=== PATIENT | female | born 1990 | race Caucasian/White ===

== ENCOUNTER 2022-05-28 13:50 | Emergency (ER) | payer BC ==
[~2022-05-28] VITALS: Ht 160 cm; Wt 69.1 kg
[~2022-05-28 13:50] MED LIST: CYCL-1 PO; IBUP-1986 PO; MECL-159 PO; ONDA4TAB12 PO; ORPH100T2 PO; PROC-8 PO
[2022-05-28 14:20] LABS: BASOPHILS # (AUTO) 0.1 X10'3 (0-0.2); BASOPHILS % (AUTO) 1.2 % (0-1); EOSINOPHILS % (AUTO) 0.4 % (0-6); HEMATOCRIT 41.9 % (35.0-45.0); HEMOGLOBIN 14.4 g/dl (12.0-16.0); LYMPHOCYTES # (AUTO) 1.7 X10'3 (1.1-4.8); LYMPHOCYTES % (AUTO) 25.3 % (21-51); MEAN CORPUSCULAR HEMOGLOBIN 32.6 PG (27.0-31.0); MEAN CORPUSCULAR HGB CONC 34.3 g/dL (33.0-36.5); MEAN CORPUSCULAR VOLUME 95.1 FL (78-98); MEAN PLATELET VOLUME 8.3 FL (7.4-10.4); MONOCYTES # (AUTO) 0.4 X10'3 (0-0.9); MONOCYTES % (AUTO) 6.5 % (2-12); NEUTROPHILS # (AUTO) 4.4 X10'3 (1.8-7.7); NEUTROPHILS % (AUTO) 66.6 % (42-75); PLATELET COUNT 276 X10'3 (140-440); RED CELL DISTRIBUTION WIDTH 12.7 % (11.5-14.5); WHITE BLOOD COUNT 6.6 X10'3 (4.5-11.0)
[2022-05-28 14:40] LABS: ALANINE AMINOTRANSFERASE 8 U/L (12-78); ALBUMIN 4.5 G/DL (3.4-5.0); ALBUMIN/GLOBULIN RATIO 1.4 (1.1-1.5); ALKALINE PHOSPHATASE 64 IU/L (46-116); ANION GAP 11 (8-16); ASPARTATE AMINO TRANSFERASE 16 U/L (10-37); BILIRUBIN,TOTAL 0.6 MG/DL (0.1-1.0); BLOOD UREA NITROGEN 10 MG/DL (7-18); BUN/CREATININE RATIO 13.9 (6.6-38.0); CALCIUM 9.1 MG/DL (8.5-10.1); CHLORIDE 104 MMOL/L (99-107); CREATININE 0.72 MG/DL (0.40-0.90); GLUCOSE 108 MG/DL (70-104); POTASSIUM 3.2 MMOL/L (3.5-5.1); SODIUM 138 MMOL/L (135-145); TOTAL CARBON DIOXIDE 22.8 MMOL/L (24-32); TOTAL PROTEIN 7.8 G/DL (6.4-8.2); eGFR > 90 ML/MIN
[2022-05-28 14:44] LABS: MAGNESIUM 2.2 MG/DL (1.5-2.4)
[2022-05-28] MEDS ORDERED: potassium Cl 20 mEq SR tablet PO ONE (15:55)
[2022-05-28 16:12] LABS: ETHANOL < 0.010 GM/DL (0.0-0.010)
[2022-05-28] MEDS ORDERED: naproxen 500mg tablet PO ONE (16:30)
[2022-05-28 16:36] LABS: URINE HCG NEGATIVE (NEG)
[2022-05-28 16:40] LABS: CLARITY,URINE CLOUDY (Clear); COLOR,URINE YELLOW (Yellow); GLUCOSE, URINE NEGATIVE (Neg); KETONES,URINE >=80 mg/dl (Neg); LEUKOCYTE ESTERASE ,URINE NEGATIVE (Neg); NITRITES, URINE NEGATIVE (Neg); OCCULT BLOOD,URINE LARGE (Neg); PH,URINE 6.5 (4.8-8.0); PROTEIN,URINE TRACE mg/dl (Neg); UROBILINOGEN,URINE 0.2 E.U/dL (0.2-1.0)
[2022-05-28 16:53] LABS: URINE AMPHETAMINE SCREEN NEGATIVE (Neg); URINE BARBITUATE SCREEN NEGATIVE (Neg); URINE BENZODIAZEPINES SCREEN NEGATIVE (Neg); URINE COCAINE SCREEN NEGATIVE (Neg); URINE METHADONE SCREEN NEGATIVE (Neg); URINE OPIATE SCREEN NEGATIVE (Neg); URINE PHENCYCLIDINE SCREEN NEGATIVE (Neg)
[2022-05-28 16:59] LABS: UA COLLECTION TYPE CLN CATCH MIDSTREAM
[2022-05-28 17:00] LABS: BACTERIA,URINE 2+ /HPF (Neg); MUCUS STRANDS MANY /LPF (Neg); RBC,URINE 50-100 /HPF (0-2); SQUAMOUS EPITHELIAL CELL,UR MANY /LPF (FEW); WBC,URINE 0-4 /HPF (0-4)
[2022-05-28] MEDS ORDERED: diazepam 5mg tablet PO ONE (18:15)
[2022-05-28 18:27] VITALS: BP 126/90
[2022-06-03] MEDS ORDERED: PROP10TA10 PO (05:27)
== END 2022-05-28 18:34 | disposition home or self-care (01) ==
LOC: ER 13:51 → MERGE 13:51 → ER 18:34
DX: R00.2 Palpitations (principal); E87.6 Hypokalemia; R07.9 Chest pain, unspecified; R42 Dizziness and giddiness; Z88.1 Allergy status to other antibiotic agents; Z88.0 Allergy status to penicillin; Z79.899 Other long term (current) drug therapy
CPT/HCPCS: 36415; 71045; 80053; 80305; 80320; 81001; 81025; 83735; 83880; 84443; 84484; 85025; 93005; 99285

== ENCOUNTER 2022-06-01 06:03 | Emergency (ER) | payer BC ==
[~2022-06-01] VITALS: Ht 160 cm; Wt 66.8 kg
[2022-06-01 06:38] LABS: BASOPHILS # (AUTO) 0.1 X10'3 (0-0.2); BASOPHILS % (AUTO) 1.3 % (0-1); EOSINOPHILS # (AUTO) 0.1 X10'3 (0-0.9); EOSINOPHILS % (AUTO) 0.7 % (0-6); HEMATOCRIT 40.2 % (35.0-45.0); HEMOGLOBIN 13.7 g/dl (12.0-16.0); LYMPHOCYTES # (AUTO) 3.4 X10'3 (1.1-4.8); LYMPHOCYTES % (AUTO) 45.9 % (21-51); MEAN CORPUSCULAR HEMOGLOBIN 32.3 PG (27.0-31.0); MEAN CORPUSCULAR HGB CONC 34.2 g/dL (33.0-36.5); MEAN CORPUSCULAR VOLUME 94.6 FL (78-98); MONOCYTES # (AUTO) 0.6 X10'3 (0-0.9); MONOCYTES % (AUTO) 7.5 % (2-12); NEUTROPHILS # (AUTO) 3.3 X10'3 (1.8-7.7); NEUTROPHILS % (AUTO) 44.6 % (42-75); PLATELET COUNT 292 X10'3 (140-440); RED BLOOD COUNT 4.25 X10'6 (4.20-5.60); RED CELL DISTRIBUTION WIDTH 12.9 % (11.5-14.5); WHITE BLOOD COUNT 7.4 X10'3 (4.5-11.0)
[2022-06-01 07:06] LABS: ALANINE AMINOTRANSFERASE 11 U/L (12-78); ALBUMIN 4.4 G/DL (3.4-5.0); ALBUMIN/GLOBULIN RATIO 1.4 (1.1-1.5); ALKALINE PHOSPHATASE 63 IU/L (46-116); ANION GAP 14 (8-16); ASPARTATE AMINO TRANSFERASE 20 U/L (10-37); BLOOD UREA NITROGEN 14 MG/DL (7-18); BUN/CREATININE RATIO 15.1 (6.6-38.0); CALCIUM 9.4 MG/DL (8.5-10.1); CHLORIDE 100 MMOL/L (99-107); CREATININE 0.93 MG/DL (0.40-0.90); GLUCOSE 139 MG/DL (70-104); POTASSIUM 3.1 MMOL/L (3.5-5.1); SODIUM 138 MMOL/L (135-145); TOTAL CARBON DIOXIDE 23.8 MMOL/L (24-32); TOTAL PROTEIN 7.5 G/DL (6.4-8.2); eGFR 71 ML/MIN
[2022-06-01 07:35] LABS: D-DIMER 0.24 MG/L FEU (0-0.50)
[2022-06-01] MEDS ORDERED: potassium Cl 20 mEq SR tablet PO ONE (07:35)
[2022-06-01] MEDS ORDERED: potassium Cl 20mEq/100mL bag 100 ML IV ONE (07:35)
[2022-06-01] MEDS ORDERED: Potassium Cl inj 20 MEQ in normal saline 250ml IV soln 250 ML IV ONE (07:51)
--- NOTE | 2022-06-01 09:55 | NUR ---
Spoke with Dr. Maria and pt to only receive one IV dose 20 mEq KCL and has had received 40mEq K-dur orally.
[2022-06-01 10:05] VITALS: BP 138/84
[2022-06-01] MEDS ORDERED: PROP10TA10 PO ×2 (17:10)
[2022-06-03] MEDS ORDERED: PROP10TA10 PO (05:27)
== END 2022-06-01 10:09 | disposition home or self-care (01) ==
LOC: ER 06:04
DX: I47.1 Supraventricular tachycardia (principal); F41.0 Panic disorder [episodic paroxysmal anxiety]; F17.200 Nicotine dependence, unspecified, uncomplicated; F12.90 Cannabis use, unspecified, uncomplicated; Z72.89 Other problems related to lifestyle; Z88.1 Allergy status to other antibiotic agents; Z88.8 Allergy status to other drugs, medicaments and biological substances
CPT/HCPCS: 36415; 71045; 80053; 83880; 84443; 84484; 85025; 85379; 93005; 96365; 99285; J3480; J7050

== ENCOUNTER → 2022-08-31 | Outpatient (CLI) | payer BC ==
[~2022-08-31] MED LIST changes: +IBUP-864 PO; -ORPH100T2 PO; +ORPH100T4 PO; +PROP10TA10 PO
== END | disposition home or self-care (01) ==
LOC: RAD 11:01
PROVIDERS: ATTEND Family Medicine
DX: M51.36 Other intervertebral disc degeneration, lumbar region (principal); M48.061 Spinal stenosis, lumbar region without neurogenic claudication; M12.88 Other specific arthropathies, not elsewhere classified, other specified site; M54.50 Low back pain, unspecified
CPT/HCPCS: 72110

== ENCOUNTER 2023-05-16 06:14 | Emergency (ER) | payer BC ==
[~2023-05-16] VITALS: Ht 160 cm; Wt 66.8 kg
[~2023-05-16 06:14] MED LIST changes: -MECL-159 PO; +MECL-302 PO
[2023-05-16 06:19] VITALS: TEMP 98.3
[2023-05-16 07:19] LABS: BASOPHILS # (AUTO) 0.1 X10'3 (0-0.2); EOSINOPHILS # (AUTO) 0.1 X10'3 (0-0.9); EOSINOPHILS % (AUTO) 2.2 % (0-6); HEMATOCRIT 41.4 % (35.0-45.0); HEMOGLOBIN 14.3 g/dl (12.0-16.0); LYMPHOCYTES # (AUTO) 2.2 X10'3 (1.1-4.8); LYMPHOCYTES % (AUTO) 42.1 % (21-51); MEAN CORPUSCULAR HEMOGLOBIN 32.3 PG (27.0-31.0); MEAN CORPUSCULAR HGB CONC 34.5 g/dL (33.0-36.5); MEAN CORPUSCULAR VOLUME 93.5 FL (78-98); MEAN PLATELET VOLUME 7.9 FL (7.4-10.4); MONOCYTES # (AUTO) 0.4 X10'3 (0-0.9); MONOCYTES % (AUTO) 8.5 % (2-12); NEUTROPHILS # (AUTO) 2.4 X10'3 (1.8-7.7); NEUTROPHILS % (AUTO) 46.2 % (42-75); PLATELET COUNT 270 X10'3 (140-440); RED BLOOD COUNT 4.43 X10'6 (4.20-5.60); RED CELL DISTRIBUTION WIDTH 12.6 % (11.5-14.5); WHITE BLOOD COUNT 5.1 X10'3 (4.5-11.0)
[2023-05-16 07:24] VITALS: BP 108/68; PULSE 71; RESP 20; O2SAT 98
[2023-05-16 07:36] LABS: ALBUMIN 3.9 G/DL (3.4-5.0); ANION GAP 15 (8-16); BLOOD UREA NITROGEN 8 MG/DL (7-18); BUN/CREATININE RATIO 9.2 (10.0-20.0); CALCIUM 8.4 MG/DL (8.5-10.1); CHLORIDE 104 MMOL/L (99-107); CREATININE 0.87 MG/DL (0.40-0.90); GLUCOSE 80 MG/DL (70-104); POTASSIUM 3.8 MMOL/L (3.5-5.1); PRO BRAIN NATRIURETIC PEPTIDE < 30 PG/ML (0-125); SODIUM 141 MMOL/L (135-145); TOTAL CARBON DIOXIDE 21.9 MMOL/L (24-32); eCRCL 78 ML/MIN; eGFR 76 ML/MIN
[2023-05-16] MEDS: LORazepam 2 mg/ml vial IV ONE (08:22)
[2023-05-16] MEDS: normal saline 1000ml 1,000 ML IV ONE ×2 (08:22→09:56)
[2023-05-16 08:37] LABS: D-DIMER < 0.19 MG/L FEU (0-0.50)
[2023-05-16 09:45] LABS: URINE AMPHETAMINE SCREEN NEGATIVE (Neg); URINE BARBITUATE SCREEN NEGATIVE (Neg); URINE BENZODIAZEPINES SCREEN NEGATIVE (Neg); URINE CANNABINOID SCREEN POSITIVE (Neg); URINE COCAINE SCREEN NEGATIVE (Neg); URINE METHADONE SCREEN NEGATIVE (Neg); URINE OPIATE SCREEN NEGATIVE (Neg); URINE PHENCYCLIDINE SCREEN NEGATIVE (Neg)
== END 2023-05-16 10:15 | disposition home or self-care (01) ==
LOC: ER 06:15
DX: F41.9 Anxiety disorder, unspecified (principal); E86.0 Dehydration; F12.10 Cannabis abuse, uncomplicated; Z79.899 Other long term (current) drug therapy
CPT/HCPCS: 36415; 71045; 80048; 80305; 83880; 84484; 85025; 85379; 93005; 96361; 96374; 99285; J2060; J7030

== ENCOUNTER 2023-06-11 15:56 | Emergency (ER) | payer BC ==
[~2023-06-11] VITALS: Ht 160 cm; Wt 67.6 kg
[2023-06-11 16:00] VITALS: BP 131/85; PULSE 92; TEMP 98; O2SAT 100
[2023-06-11] MEDS ORDERED: PRED20TA PO (16:09)
[2023-06-11 16:24] VITALS: RESP 16
[2023-06-11] MEDS: ketorolac trometh. 30mg/ml inj. IM ONE (16:24)
== END 2023-06-11 16:30 | disposition home or self-care (01) ==
LOC: ER 15:57
DX: M25.532 Pain in left wrist (principal); F12.90 Cannabis use, unspecified, uncomplicated; Z98.890 Other specified postprocedural states; Z72.89 Other problems related to lifestyle; Z79.2 Long term (current) use of antibiotics; Z88.8 Allergy status to other drugs, medicaments and biological substances; Z79.899 Other long term (current) drug therapy; Z79.1 Long term (current) use of non-steroidal anti-inflammatories (NSAID)
CPT/HCPCS: 96372; 99283; J1885

== ENCOUNTER → 2023-06-24 | Outpatient (CLI) | payer BC ==
[2023-06-24] VITALS (21 sets, daily range): BP systolic 104–134; BP diastolic 66–100; PULSE 69–103
[~2023-06-24] MED LIST changes: +PRED20TA PO
== END | disposition home or self-care (01) ==
LOC: CARD DIAG 05:30
PROVIDERS: ATTEND Internal Medicine Interventional Cardiology
DX: R55 Syncope and collapse (principal)
CPT/HCPCS: 93660

== ENCOUNTER 2023-06-29 06:31 | Emergency (ER) | payer BC ==
[~2023-06-29] VITALS: Ht 160 cm; Wt 67.3 kg
[2023-06-29 06:47] VITALS: TEMP 98.3
[2023-06-29 07:15] LABS: BASOPHILS # (AUTO) 0.1 X10'3 (0-0.2); EOSINOPHILS # (AUTO) 0.1 X10'3 (0-0.9); HEMATOCRIT 37.9 % (35.0-45.0); LYMPHOCYTES # (AUTO) 2.4 X10'3 (1.1-4.8); LYMPHOCYTES % (AUTO) 39.5 % (21-51); MEAN CORPUSCULAR HEMOGLOBIN 32.5 PG (27.0-31.0); MEAN CORPUSCULAR HGB CONC 34.2 g/dL (33.0-36.5); MEAN PLATELET VOLUME 7.7 FL (7.4-10.4); MONOCYTES # (AUTO) 0.4 X10'3 (0-0.9); MONOCYTES % (AUTO) 7.4 % (2-12); NEUTROPHILS % (AUTO) 50.1 % (42-75); PLATELET COUNT 285 X10'3 (140-440); RED BLOOD COUNT 3.99 X10'6 (4.20-5.60); RED CELL DISTRIBUTION WIDTH 12.7 % (11.5-14.5)
[2023-06-29 07:23] LABS: ALBUMIN 3.6 G/DL (3.4-5.0); ANION GAP 11 (8-16); BLOOD UREA NITROGEN 8 MG/DL (7-18); BUN/CREATININE RATIO 11.3 (10.0-20.0); CALCIUM 8.1 MG/DL (8.5-10.1); CHLORIDE 103 MMOL/L (99-107); CREATININE 0.71 MG/DL (0.40-0.90); GLUCOSE 95 MG/DL (70-104); POTASSIUM 3.4 MMOL/L (3.5-5.1); SODIUM 138 MMOL/L (135-145); TOTAL CARBON DIOXIDE 23.6 MMOL/L (24-32); eCRCL 95 ML/MIN; eGFR > 90 ML/MIN
[2023-06-29] MEDS: ondansetron 4mg rapidly disintigrating tab PO ONE (08:34)
[2023-06-29 09:30] VITALS: BP 107/62; PULSE 69; RESP 16; O2SAT 100
[2023-06-29 09:40] LABS: HCG SERUM QL NEGATIVE
== END 2023-06-29 09:33 | disposition home or self-care (01) ==
LOC: ER 06:32
DX: R00.2 Palpitations (principal); R07.89 Other chest pain; F41.9 Anxiety disorder, unspecified; I47.9 Paroxysmal tachycardia, unspecified; F17.200 Nicotine dependence, unspecified, uncomplicated; G43.909 Migraine, unspecified, not intractable, without status migrainosus; Z72.89 Other problems related to lifestyle; Z88.8 Allergy status to other drugs, medicaments and biological substances; Z88.1 Allergy status to other antibiotic agents; Z79.899 Other long term (current) drug therapy
CPT/HCPCS: 36415; 80048; 84484; 84703; 85025; 93005; 99284

== ENCOUNTER 2023-08-08 13:41 | Emergency (ER) | payer BC ==
[~2023-08-08] VITALS: Ht 162.6 cm; Wt 68.0 kg
[~2023-08-08 13:41] MED LIST changes: -PRED20TA PO
[2023-08-08 13:54] VITALS: BP 135/83; PULSE 98; RESP 16; TEMP 99.4; O2SAT 100
== END 2023-08-08 15:50 | disposition home or self-care (01) ==
LOC: ER 13:42
DX: S60.011A Contusion of right thumb without damage to nail, initial encounter (principal); Z88.1 Allergy status to other antibiotic agents; Z88.8 Allergy status to other drugs, medicaments and biological substances; F41.9 Anxiety disorder, unspecified; F17.200 Nicotine dependence, unspecified, uncomplicated; F12.90 Cannabis use, unspecified, uncomplicated; X58.XXXA Exposure to other specified factors, initial encounter; Y93.89 Activity, other specified; Y92.89 Other specified places as the place of occurrence of the external cause; Y99.8 Other external cause status
CPT/HCPCS: 73140; 99283

== ENCOUNTER 2023-11-15 09:47 | Outpatient (CLI) | payer BC, MEDICAID ==
[~2023-11-15 09:47] MED LIST changes: +ONDA-243 PO; -ONDA4TAB12 PO
== END 2023-11-15 23:59 | disposition home or self-care (01) ==
LOC: MRI 09:47
PROVIDERS: ATTEND Physician Assistant Surgical
DX: S63.641A Sprain of metacarpophalangeal joint of right thumb, initial encounter (principal); S63.111A Subluxation of metacarpophalangeal joint of right thumb, initial encounter; M65.4 Radial styloid tenosynovitis [de Quervain]; M25.531 Pain in right wrist; X58.XXXA Exposure to other specified factors, initial encounter; Y93.89 Activity, other specified; Y92.89 Other specified places as the place of occurrence of the external cause; Y99.8 Other external cause status
CPT/HCPCS: 73221

== ENCOUNTER 2024-06-22 14:46 | Outpatient (CLI) | payer MEDICAID | END 2024-06-22 23:59 | disposition home or self-care (01) | LOC: RAD 14:46 | PROVIDERS: ATTEND Otolaryngology | DX: I51.7 Cardiomegaly (principal); D10.5 Benign neoplasm of other parts of oropharynx | CPT/HCPCS: 93005 ==

== ENCOUNTER 2024-07-10 07:28 | Day surgery (SDC) | payer MEDICAID ==
[2024-06-30 12:18] LABS: BASOPHILS # (AUTO) 0.1 X10'3 (0-0.2); BASOPHILS % (AUTO) 1.1 % (0-1); EOSINOPHILS # (AUTO) 0.1 X10'3 (0-0.9); EOSINOPHILS % (AUTO) 1.9 % (0-6); LYMPHOCYTES % (AUTO) 38.1 % (21-51); MEAN CORPUSCULAR HEMOGLOBIN 28.4 PG (27.0-31.0); MEAN CORPUSCULAR HGB CONC 33.9 g/dL (33.0-36.5); MEAN CORPUSCULAR VOLUME 83.8 FL (78-98); MEAN PLATELET VOLUME 7.1 FL (7.4-10.4); MONOCYTES # (AUTO) 0.7 X10'3 (0-0.9); MONOCYTES % (AUTO) 8.7 % (2-12); NEUTROPHILS # (AUTO) 3.9 X10'3 (1.8-7.7); NEUTROPHILS % (AUTO) 50.2 % (42-75); PRE OP HEMATOCRIT 36.2 % (35.0-45.0); PRE OP HEMOGLOBIN 12.3 g/dL (12.0-16.0); PRE OP PLATELET COUNT 380 X10'3 (140-440); PRE OP WHITE BLOOD COUNT 7.9 10'3 (4.8-10.8); RED BLOOD COUNT 4.32 X10'6 (4.20-5.60); RED CELL DISTRIBUTION WIDTH 15.1 % (11.5-14.5)
[2024-06-30 12:32] LABS: ALBUMIN 3.8 G/DL (3.4-5.0); ALBUMIN/GLOBULIN RATIO 1.1 (1.1-1.5); ALKALINE PHOSPHATASE 99 IU/L (46-116); BLOOD UREA NITROGEN 15 MG/DL (7-18); BUN/CREATININE RATIO 21.4 (10.0-20.0); CALCIUM 8.7 MG/DL (8.5-10.1); CHLORIDE 103 MMOL/L (99-107); PRE OP ALT 20 U/L (30-65); PRE OP ANION GAP 7 (8-16); PRE OP AST 21 U/L (10-37); PRE OP BILIRUB, TOTAL 0.4 MG/DL (0.0-1.0); PRE OP GLUCOSE 86 MG/DL (70-104); PRE OP POTASSIUM 4.1 MMOL/L (3.4-5.1); PRE OP SODIUM 138 MMOL/L (135-145); TOTAL CARBON DIOXIDE 28.3 MMOL/L (24-32); TOTAL PROTEIN 7.3 G/DL (6.4-8.2); eGFR > 90 ML/MIN
[2024-07-10] VITALS (7 sets, daily range): BP systolic 102–130; BP diastolic 69–78; PULSE 58–69; RESP 14–18; TEMP 98.7; O2SAT 10–100
[~2024-07-10] VITALS: Ht 162.6 cm; Wt 81.6 kg
[2024-07-10] MEDS: clindamycin-Cleocin 900mg/D5W 50 ML IV ONE (05:30)
[~2024-07-10 07:28] MED LIST changes: -CYCL-1 PO; -IBUP-1986 PO; -IBUP-864 PO; -MECL-302 PO; +NO HOME MEDS; -ONDA-243 PO; -ORPH100T4 PO; -PROC-8 PO; -PROP10TA10 PO
[2024-07-10] MEDS ORDERED: ondansetron/PF 4mg/2ml inj IV PRN ×2 (08:35→08:45)
[2024-07-10] MEDS ORDERED: proCHLORperazine 10 MG/2 ml inj IV PRN ×2 (08:35→08:45)
[2024-07-10] MEDS ORDERED: labetalol 20mg/4ml (5mg/ml) syringe IV PRN ×2 (08:35→08:45)
[2024-07-10] MEDS ORDERED: morphine 2 MG/ML inj. syringe IV PRN ×2 (08:35→08:45)
[2024-07-10] MEDS ORDERED: ringers solution, lacted 1,000 ML IV SCH ×2 (08:35→08:45)
[2024-07-10] MEDS ORDERED: meperidine/PF 25mg/ml syringe IV PRN ×6 (08:35→08:45)
[2024-07-10] MEDS ORDERED: morphine 4 MG/ML inj SYRINge IV PRN ×2 (08:35→08:45)
[2024-07-10] MEDS ORDERED: enalaprilat 1.25mg/ml 2ml vial IV PRN ×2 (08:35→08:45)
[2024-07-10] MEDS: famotidine 20mg tablet PO ONE (08:38)
[2024-07-10] MEDS: ringers solution, lacted 1,000 ML IV SCH (08:38)
[2024-07-10] MEDS ORDERED: BUPIVAcaine/PF 2.5mg/ml (0.25%) 10ml vial ONE (09:56)
[2024-07-10] MEDS ORDERED: sevoflurane 250ml liquid IH ONE (10:16)
[2024-07-10] MEDS: BUPIVAcaine/PF 2.5mg/ml (0.25%) 10ml vial IJ ONE (10:20)
== END 2024-07-10 12:13 | disposition home or self-care (01) ==
LOC: PAS 07:28
PROVIDERS: ATTEND Orthopaedic Surgery Hand Surgery
DX: S63.641A Sprain of metacarpophalangeal joint of right thumb, initial encounter (principal); F41.8 Other specified anxiety disorders; X58.XXXA Exposure to other specified factors, initial encounter; Y93.89 Activity, other specified; Y92.89 Other specified places as the place of occurrence of the external cause; Y99.8 Other external cause status; Z79.899 Other long term (current) drug therapy; Z87.891 Personal history of nicotine dependence; G43.909 Migraine, unspecified, not intractable, without status migrainosus; Z88.8 Allergy status to other drugs, medicaments and biological substances
CPT/HCPCS: 26540; 36415; 80053; 82948; 85025; J1885; J2003; J2704; J3490; J7030; J7120; Z7506; Z7512; A4215; A4618; A6449; A7000